=== PATIENT | female | born 1925 | race African-American/Black ===

== ENCOUNTER 2016-11-02 04:26 | Inpatient (IN) | payer MEDICARE, OTHER ==
[~2016-11-02] VITALS: Ht 152.4 cm; Wt 56.2 kg
[2016-11-02] VITALS (8 sets, daily range): BP systolic 83–127; BP diastolic 42–83
[~2016-11-02 04:26] MED LIST: AMLO10TA2 PO; ASPI-482 PO; BISA-42 PO; GLIM2TAB2 PO; LISI10TA PO; LISI10TA2 PO; LOVA40TA2 PO; MAGN400O7 PO; METF-620 PO; SENN8.6C2 PO
[2016-11-02] MEDS ORDERED: MIDAZOLAM PREMIX 100 ML IV ONE (04:51)
[2016-11-02 04:57] LABS: BASO # 0.1 x10^3/uL (0.0-0.2); BASO % 0 % (0-3); EOS % 0 % (0-3); HEMATOCRIT 40.4 % (36.0-47.0); HEMOGLOBIN 12.5 g/dL (12.0-15.5); LYMPH # 1.4 x10^3/uL (1.0-4.8); LYMPH % 8 % (24-48); MEAN CORPUSCULAR HEMOGLOBIN 30 pg (25-35); MEAN CORPUSCULAR HGB CONC 31 g/dL (31-37); MEAN CORPUSCULAR VOLUME 97 fL (79-100); MONO % 6 % (0-9); NEUT % 86 % (31-73); PLATELET COUNT 209 x10^3/uL (140-400); RED BLOOD COUNT 4.15 x10^6/uL (3.50-5.40); WHITE BLOOD COUNT 18.8 x10^3/uL (4.0-11.0)
[2016-11-02] MEDS ORDERED: IV NORMAL SALINE 1000ML BAG 1,000 ML IV ONE ×2 (05:00→05:30)
[2016-11-02 05:09] LABS: BILIRUBIN,URINE NEGATIVE (NEG); GLUCOSE,URINE >=1000 mg/dL (NEG); NITRITE,URINE NEGATIVE (NEG); PH,URINE 5.5; PROTEIN,URINE NEGATIVE (NEG-TRACE); UROBILINOGEN,URINE 0.2 mg/dL (0.2 mg/dL)
[2016-11-02 05:12] LABS: HCO3 ABG 10 mmol/L (21-28); PCO2 ABG 23 mmHg (35-46); PH ABG 7.25 (7.35-7.45); PO2 ABG 352 mmHg (65-108); SAT O2 ABG 100 % (92-99)
[2016-11-02] MEDS ORDERED: NOREPINEPHRIN PREMIX 250 ML IV ONE ×2 (05:15→13:59)
[2016-11-02] MEDS ORDERED: CLINDAMYCIN 600MG PREMIX 50 ML IV ONE (05:15)
[2016-11-02 05:17] LABS: CALCIUM 9.7 mg/dL (8.5-10.1); CREATININE 2.6 mg/dL (0.6-1.0); POTASSIUM 5.2 mmol/L (3.5-5.1)
[2016-11-02 05:24] LABS: ALBUMIN 3.3 g/dL (3.4-5.0); ALBUMIN/GLOBULIN RATIO 0.8 (1.0-1.7); TOTAL BILIRUBIN 0.7 mg/dL (0.2-1.0); TOTAL PROTEIN 7.5 g/dL (6.4-8.2)
[2016-11-02 05:26] LABS: BACTERIA,URINE FEW /HPF (0-FEW); RBC,URINE 20-40 /HPF (0-2)
[2016-11-02] MEDS ORDERED: NALOXONE 2 MG/2 ML DISP.SYRIN. IV ONE (05:30)
[2016-11-02] MEDS ORDERED: MIDAZOLAM PREMIX 100 ML IV PRN (05:45)
--- NOTE | 2016-11-02 05:53 | PHYS DOC ---
Past Medical History Past Medical History: Constipation, Diabetes-Type II, High Cholesterol, Hypertension Additional Past Medical Histor: dementia, Past Surgical History: Pacemaker, Other Additional Past Surgical Histo: unknown Alcohol Use: None Drug Use: None Adult General Chief Complaint Chief Complaint: DYSPNEA/RESPIRATOY DISTRESS HPI HPI Patient is a 89 year old [place] female [facility] patient with history of dementia resents with hypoxia acute respiratory failure and hypotension. Patient was found to be hypoxic and hypotensive on morning rounds. EMS was contacted patient was satting 70% on room air with nonpalpable pulse. Patient placed on [id number] with manual ventilation transferred to the ED. Systolic blood pressure of 50 on ED arrival. Blood sugar normal. Patient is a full code. Patient intubated and given aggressive hydration hydration for blood pressure support. History is limited due to the patient's cognitive impairment clinical condition. Review of Systems Review of Systems Review symptoms as prescribed is limited due to patient's clinical condition. Current Medications Current Medications Current Medications Medications (Trade) Dose Ordered Sig/Delisa Start Time Stop Time Status Last Admin Dose Admin Sodium Chloride 1,000 ml @ 1,000 mls/hr 1X ONCE 11/02/16 05:00 11/02/16 05:59 11/02/16 04:34 1,000 MLS/HR Allergies Allergies Allergies Coded Allergies Type Severity Reaction Last Updated Verified No Known Drug Allergies 10/22/14 No Physical Exam Physical Exam Constitutional: Unresponsive, agonal respirations. [] HENT: Normocephalic, atraumatic, bilateral external ears normal, oropharynx moist, dentures in place, nose normal. [] Eyes: PERRL, sluggish reactivity. [] Neck: Normal range of motion, supple. [] Cardiovascular: Regular rate [] Lungs & Thorax: Agonal respirations with assisted mainly with [id number] [] Abdomen: Bowel sounds normal, soft. [] Skin: Warm, dry, appropriate for ethnicity [] . [] Extremities: No tenderness, no cyanosis, no clubbing, ROM intact, no edema. [] Neurologic: GCS of 3 [] . [] Current Patient Data Vital Signs Vital Signs Date Time Temp Pulse Resp B/P (MAP) Pulse Ox O2 Delivery O2 Flow Rate FiO2 11/02/16 04:55 108 20 70/34 (46) 100 Ventilator 11/02/16 04:45 15.0 11/02/16 04:28 98.0 98.0 Lab Values Laboratory Tests Test 11/02/16 04:41 11/02/16 04:45 11/02/16 04:53 O2 Saturation 100 % (92-99) H Arterial Blood pH 7.25 (7.35-7.45) L Arterial Blood pCO2 at Patient Temp 23 mmHg (35-46) L Arterial Blood pO2 at Patient Temp 352 mmHg (65-108) H Arterial Blood HCO3 10 mmol/L (21-28) L Arterial Blood Base Excess -15 mmol/L (-3-3) L FiO2 100.0 White Blood Count 18.8 x10^3/uL (4.0-11.0) H Red Blood Count 4.15 x10^6/uL (3.50-5.40) Hemoglobin 12.5 g/dL (12.0-15.5) Hematocrit 40.4 % (36.0-47.0) Mean Corpuscular Volume 97 fL (79-100) Mean Corpuscular Hemoglobin 30 pg (25-35) Mean Corpuscular Hemoglobin Concent 31 g/dL (31-37) Red Cell Distribution Width 15.0 % (11.5-14.5) H Platelet Count 209 x10^3/uL (140-400) Neutrophils (%) (Auto) 86 % (31-73) H Lymphocytes (%) (Auto) 8 % (24-48) L Monocytes (%) (Auto) 6 % (0-9) Eosinophils (%) (Auto) 0 % (0-3) Basophils (%) (Auto) 0 % (0-3) Neutrophils # (Auto) 16.2 x10^3uL (1.8-7.7) H Lymphocytes # (Auto) 1.4 x10^3/uL (1.0-4.8) Monocytes # (Auto) 1.1 x10^3/uL (0.0-1.1) Eosinophils # (Auto) 0.0 x10^3/uL (0.0-0.7) Basophils # (Auto) 0.1 x10^3/uL (0.0-0.2) Platelet Estimate Pending Sodium Level 150 mmol/L (136-145) H Potassium Level 5.2 mmol/L (3.5-5.1) H Chloride Level 109 mmol/L (98-107) H Carbon Dioxide Level 14 mmol/L (21-32) L Anion Gap 27 (6-14) H Blood Urea Nitrogen 38 mg/dL (7-20) H Creatinine 2.6 mg/dL (0.6-1.0) H Estimated GFR (Cockcroft-Gault) 21.0 BUN/Creatinine Ratio 15 (6-20) Glucose Level 145 mg/dL (70-99) H Calcium Level 9.7 mg/dL (8.5-10.1) Total Bilirubin 0.7 mg/dL (0.2-1.0) Aspartate Amino Transferase (AST) 156 U/L (15-37) H Alanine Aminotransferase (ALT) 36 U/L (14-59) Alkaline Phosphatase 95 U/L (46-116) Troponin I Quantitative 4.747 ng/mL (0.000-0.055) ZO-Bqa-T-Type Natriuretic Peptide 580 pg/mL (0-449) H Total Protein 7.5 g/dL (6.4-8.2) Albumin 3.3 g/dL (3.4-5.0) L Albumin/Globulin Ratio 0.8 (1.0-1.7) L Thyroid Stimulating Hormone (TSH) 12.215 uIU/mL (0.358-3.74) H Urine Collection Type U cath Urine Color Yellow Urine Clarity Clear Urine pH 5.5 Urine Specific [place] 1.025 Urine Protein Negative mg/dL (NEG-TRACE) Urine Glucose (UA) >=1000 mg/dL (NEG) Urine Ketones (Stick) Negative mg/dL (NEG) Urine Blood Moderate (NEG) Urine Nitrite Negative (NEG) Urine Bilirubin Negative (NEG) Urine Urobilinogen Dipstick 0.2 mg/dL (0.2 mg/dL) Urine Leukocyte Esterase Negative (NEG) Urine RBC 20-40 /HPF (0-2) Urine WBC 1-4 /HPF (0-4) Urine Transitional Epithelial Cells Few /LPF Urine Renal Epithelial Cells Occ /LPF Urine Bacteria Few /HPF (0-FEW) Laboratory Tests 11/02/16 04:45 Laboratory Tests 11/02/16 04:45 EKG EKG [EKG #1: Sinus tach, rate 106, no acute ST-T wave changes. Inferior Q waves, QTC 467] Radiology/Procedures Radiology/Procedures [Chest x-ray: Endotracheal tube in good position Intubation procedure note: Consent was not obtained due to the emergent nature of the patient's condition. Patient placed on 100% oxygen and with assisted respirations via bag valve mask. Etomidate and succinylcholine were given for sedation and paralysis. Upon adequate level of relaxation, as 7.5 endotracheal tube was cautiously introduced through the vocal cords and held a 21 cm at the lips upon first attempt via video laryngoscope. Endotracheal tube was then secured and position was confirmed with breath sounds, capnometry and chest x- ray. ] Course & Med Decision Making Course & Med Decision Making Pertinent Labs and Imaging studies reviewed. (See chart for details) [Patient with acute respiratory failure with hypoxia immediately intubated on ED arrival. Concerns for possible aspiration at [facility]. Empiric antibiotics given. Patient hypotensive with elevated troponin. Aggressive IV fluids and Levophed started. Dr. Harding consulted. Dr. Diallo accepts for Dr. Bravo. Family members updated with patients status and request no chest compressions. A chest x-ray was ordered confirms proper endotracheal tube placement. Patient tolerated the procedure well without complication. Patient will have CT performed of the head on the way to ICU. ] Dragon Disclaimer Dragon Disclaimer This electronic medical record was generated, in whole or in part, using a voice recognition dictation system. Departure Departure Impression: Primary Impression: Acute respiratory failure with hypoxemia Additional Impressions: Hypotension Elevated troponin Altered mental state Dementia Disposition: ADMITTED INPATIENT Admitting Physician: Beto Deal Condition: GRAVE Referrals: ANAID CISSE MD (PCP) Problem Qualifiers ANIRUDH MCCONNELL DO Nov 02, 2016 05:53
[2016-11-02] MEDS ORDERED: IV NORMAL SALINE 1000ML BAG 1,000 ML IV SCH (06:00)
[2016-11-02] MEDS ORDERED: MIDAZOLAM HCL/PF 5 MG/5 ML VIAL. IV ONE (06:00)
[2016-11-02] MEDS ORDERED: SUCCINYLCHOLINE 200 MG/10 ML VIAL. ONE (06:25)
[2016-11-02] MEDS ORDERED: ETOMIDATE 20 MG/10 ML VIAL. IV ONE (06:25)
--- NOTE | 2016-11-02 06:35 | RAD ---
EXAM: CT head without contrast HISTORY: AMS H/O DEMENTIA AND HYPOTENSION COMPARISON: November 09, 2014 TECHNIQUE: Computed tomographic images of the head were obtained without contrast. RS compliance statement: One or more of the following individualized dose reduction techniques were utilized for this examination: 1. Automated exposure control 2. Adjustment of the mA and/or kV according to patient size 3. Use of iterative reconstruction technique FINDINGS: There is no acute intracranial process identified. Specifically, there are no intracranial blood products, extra-axial fluid collections, mass effect or midline shift. Ventricles and sulci appear age-appropriate. There are areas of decreased attenuation within the cerebral white matter, nonspecific and likely related to chronic small vessel disease. Basal ganglia mineralization is redemonstrated. Intracranial vascular calcifications are present. The visualized portions of the orbits, paranasal sinuses and mastoid air cells are unremarkable. No suspicious calvarial lesion is seen. IMPRESSION: No acute intracranial findings or change from prior exam. Electronically signed by: Suri Card MD (11/02/2016 6:31 AM) [id number]
[2016-11-02] MEDS ORDERED: POLY119P19 PO (06:51)
[2016-11-02] MEDS ORDERED: BENZ100C PO (06:51)
[2016-11-02] MEDS ORDERED: MULT-245 PO (06:51)
[2016-11-02] MEDS ORDERED: INSU100I13 SQ (06:51)
[2016-11-02] MEDS ORDERED: DOCU-109 PO (06:51)
[2016-11-02] MEDS ORDERED: ACET325T9 PO (06:51)
[2016-11-02] MEDS ORDERED: SERT50TA PO (06:51)
[2016-11-02] MEDS ORDERED: CARB1TAB2 PO (06:51)
[2016-11-02] MEDS ORDERED: LISI40TA PO (06:51)
[2016-11-02 06:56] LABS: PLT ESTIMATE ADEQUATE (ADEQUATE)
--- NOTE | 2016-11-02 06:58 | RAD ---
Chest x-ray Indication: ET tube placement Technique: Supine AP view of the chest Comparison: Chest x-ray from 11/11/2014 Findings: ET tube is seen at the level of lay[place] and should be withdrawn by approximately 3.5 cm. NG tube is seen with its tip in the distal stomach. Left chest wall cardiac device is seen with leads projecting over the heart Heart is normal in size. Lungs are clear. No pneumothorax or pleural effusion. Scoliosis of the spine noted. Impression: ET tube the level of layton. Please withdraw by 3 to 4 cm.
--- NOTE | 2016-11-02 07:11 | EKG ---
[facility] [address] [place] [address] Test Date: 2016-11-02 Test Time: 05:39:14 Pat Name: JOAO FINN Department: Room: 104 1 Gender: F Gang Bore Operator: : [id number] Requested By: ANIRUDH MCCONNELL Order Number: [id number] Reading MD: Measurements Intervals [place] Rate: 151 P: TN: QRS: -77 QRSD: 134 T: 95 QT: 322 QTc: 511 Interpretive Statements IRREGULAR RHYTHM, NO P-WAVE FOUND VENTRICULAR PREMATURE COMPLEX(ES) ABNORMAL LEFT AXIS DEVIATION NON SPECIFIC INTRAVENTRICULAR BLOCK QRS(T) CONTOUR ABNORMALITY CONSIDER ANTEROSEPTAL MYOCARDIAL DAMAGE CONSISTENT WITH INFERIOR INFARCT POSSIBLY RECENT ABNORMAL ECG RI6.01 No previous ECG available for comparison
[2016-11-02] MEDS ORDERED: PIPERACILLIN/TAZOBACTAM 3.375 GM in IV NORMAL SALINE 50ML 50 ML IV SCH (07:30)
[2016-11-02] MEDS ORDERED: VANCOMYCIN 1 GM in IV NORMAL SALINE 250ML 250 ML IV ONE (07:30)
--- NOTE | 2016-11-02 07:59 | PDOC ---
Infectious Disease Note Vital Sign Vital Signs Vital Signs Date Time Temp Pulse Resp B/P (MAP) Pulse Ox O2 Delivery O2 Flow Rate FiO2 11/02/16 07:24 100 Ventilator 11/02/16 06:30 114 22 127/83 (98) 11/02/16 06:15 96.7 96.7 11/02/16 04:45 15.0 Labs Lab Laboratory Tests Test 11/02/16 04:41 11/02/16 04:45 11/02/16 04:53 11/02/16 06:45 O2 Saturation 100 % (92-99) Arterial Blood pH 7.25 (7.35-7.45) Arterial Blood pCO2 at Patient Temp 23 mmHg (35-46) Arterial Blood pO2 at Patient Temp 352 mmHg (65-108) Arterial Blood HCO3 10 mmol/L (21-28) Arterial Blood Base Excess -15 mmol/L (-3-3) FiO2 100.0 White Blood Count 18.8 x10^3/uL (4.0-11.0) Red Blood Count 4.15 x10^6/uL (3.50-5.40) Hemoglobin 12.5 g/dL (12.0-15.5) Hematocrit 40.4 % (36.0-47.0) Mean Corpuscular Volume 97 fL (79-100) Mean Corpuscular Hemoglobin 30 pg (25-35) Mean Corpuscular Hemoglobin Concent 31 g/dL (31-37) Red Cell Distribution Width 15.0 % (11.5-14.5) Platelet Count 209 x10^3/uL (140-400) Neutrophils (%) (Auto) 86 % (31-73) Lymphocytes (%) (Auto) 8 % (24-48) Monocytes (%) (Auto) 6 % (0-9) Eosinophils (%) (Auto) 0 % (0-3) Basophils (%) (Auto) 0 % (0-3) Neutrophils # (Auto) 16.2 x10^3uL (1.8-7.7) Lymphocytes # (Auto) 1.4 x10^3/uL (1.0-4.8) Monocytes # (Auto) 1.1 x10^3/uL (0.0-1.1) Eosinophils # (Auto) 0.0 x10^3/uL (0.0-0.7) Basophils # (Auto) 0.1 x10^3/uL (0.0-0.2) Segmented Neutrophils % 62 % (35-66) Band Neutrophils % 25 % (0-9) Lymphocytes % 8 % (24-48) Monocytes % 3 % (0-10) Metamyelocytes % 2 % (0-0) Dohle Bodies Present Platelet Estimate Adequate (ADEQUATE) Sodium Level 150 mmol/L (136-145) Potassium Level 5.2 mmol/L (3.5-5.1) Chloride Level 109 mmol/L (98-107) Carbon Dioxide Level 14 mmol/L (21-32) Anion Gap 27 (6-14) Blood Urea Nitrogen 38 mg/dL (7-20) Creatinine 2.6 mg/dL (0.6-1.0) Estimated GFR (Cockcroft-Gault) 21.0 BUN/Creatinine Ratio 15 (6-20) Glucose Level 145 mg/dL (70-99) Lactic Acid Level 11.8 mmol/L (0.4-2.0) 11.3 mmol/L (0.4-2.0) Calcium Level 9.7 mg/dL (8.5-10.1) Total Bilirubin 0.7 mg/dL (0.2-1.0) Aspartate Amino Transf (AST/SGOT) 156 U/L (15-37) Alanine Aminotransferase (ALT/SGPT) 36 U/L (14-59) Alkaline Phosphatase 95 U/L (46-116) Troponin I Quantitative 4.747 ng/mL (0.000-0.055) QB-Qna-P-Type Natriuretic Peptide 580 pg/mL (0-449) Total Protein 7.5 g/dL (6.4-8.2) Albumin 3.3 g/dL (3.4-5.0) Albumin/Globulin Ratio 0.8 (1.0-1.7) Thyroid Stimulating Hormone (TSH) 12.215 uIU/mL (0.358-3.74) Urine Collection Type U cath Urine Color Yellow Urine Clarity Clear Urine pH 5.5 Urine Specific [place] 1.025 Urine Protein Negative mg/dL (NEG-TRACE) Urine Glucose (UA) >=1000 mg/dL (NEG) Urine Ketones (Stick) Negative mg/dL (NEG) Urine Blood Moderate (NEG) Urine Nitrite Negative (NEG) Urine Bilirubin Negative (NEG) Urine Urobilinogen Dipstick 0.2 mg/dL (0.2 mg/dL) Urine Leukocyte Esterase Negative (NEG) Urine RBC 20-40 /HPF (0-2) Urine WBC 1-4 /HPF (0-4) Urine Transitional Epithelial Cells Few /LPF Urine Renal Epithelial Cells Occ /LPF Urine Bacteria Few /HPF (0-FEW) Objective Assessment Sepsis Lactic acidosis Leukocytosis Respiratory failure Circulatory failure Acute WI/troponin leak Renal insufficiency Plan Plan of Care vanc x 1 zosyn and levaquin supportive care d/w brother and sister at bedside check cultures need palliative care DESI EVANS MD Nov 02, 2016 07:59
[2016-11-02 08:43] LABS: HCO3 ABG 9 mmol/L (21-28); PH ABG 7.28 (7.35-7.45); PO2 ABG 91 mmHg (65-108); SAT O2 ABG 97 % (92-99)
[2016-11-02 08:47] LABS: FIO2 ABG 40; PCO2 ABG 19 mmHg (35-46)
--- NOTE | 2016-11-02 09:03 | CONS ---
DATE OF CONSULTATION: 11/02/2016 DATE OF SERVICE: 11/02/2016 REQUESTING PHYSICIAN: Dr. Deal. REASON FOR CONSULTATION: Sepsis. HISTORY OF PRESENT ILLNESS: This is an 89-year-old -[place] female who is a [facility] who also is demented and wheelchair bound, presented as [facility] noted her to be unresponsive, hypotensive and hypoxic. EMS was called. The patient was satting at 70% on room air, nonpalpable pulse, they eventually got the pulse, intubated. The patient is currently in ICU, intubated and on vasopressor support. Her lactic acid has been 11.8, it has troponin leak 4.7, sodium 150 and BUN and creatinine elevated as well as WBC elevated. The patient's family is at the bedside. PAST MEDICAL HISTORY: Positive for dementia, diabetes, hypertension, hyperlipidemia and wheelchair bound. SOCIAL HISTORY: Negative for smoking, alcohol, illicit drug use. The patient is a [facility] resident. REVIEW OF SYSTEMS: Unable to obtain, although no diarrhea or vomiting noted by nursing. CURRENT MEDICATIONS: Reviewed. The patient received clindamycin and Levaquin. I gave one dose of vancomycin and started Zosyn. PHYSICAL EXAMINATION: GENERAL: Sedated, orally intubated female, not in distress. VITAL SIGNS: Temperature 96.7, pulse 114, respirations 22, blood pressure 127/83. HEENT: Both pupils are round and reacting. No conjunctival lesion. Mouth cannot be visualized, orally intubated. NECK: Supple, no JVD, no lymphadenopathy. LUNGS: Decreased breath sounds bilaterally. HEART: S1, S2 regular. No gallop, murmur. ABDOMEN: Soft, nontender. EXTREMITIES: No edema, cyanosis. SKIN: Unremarkable. The patient had been moving her extremities before sedation. LABORATORY DATA: White count is 18,000, platelets 209. Sodium is 150, BUN 38, creatinine 2.6. AST is 156. Urinalysis showed 1-4 wbc's, 20-40 rbc's. Blood culture, urine culture is pending. IMAGING STUDIES: Chest x-ray is unremarkable. CT head is unremarkable for any acute changes. IMPRESSION: 1. Sepsis with lactic acidosis. 2. Hypotension requiring vasopressor support. 3. Respiratory failure. 4. Hypoxemia. 5. Leukocytosis. 6. Dementia. 7. Diabetes. RECOMMENDATIONS: One dose of vancomycin was given by me. I would also start Zosyn. Continue Levaquin, supportive care. We will check the cultures. Discussed with the family. Overall, prognosis is poor. The patient is do not resuscitate, i.e., no CPR. Currently, the patient is intubated. We may get palliative care involved. Thank you very much, Dr. Deal, for giving me the opportunity to participate in this patient's care. DESI EVANS MD DR: BRYAN/nts JOB#: [id number] / [id number]
--- NOTE | 2016-11-02 09:45 | PDOC2 ---
ROLANDA TURNER PEDIGREE TRACER 11/02/16 0945: CARDIAC CONSULT DATE OF CONSULT Date of Consult DATE: 11/02/16 TIME: 09:21 REASON FOR CONSULT Reason for Consult: Elevated troponin Hypotension REFERRING PHYSICIAN Referring Physician: Dr. Valdez SOURCE Source: Chart review HISTORY OF PRESENT ILLNESS HISTORY OF PRESENT ILLNESS This is an 89 yo female who presented from nursing facility as she was found to be unresponsive. Patient was apparently found to be hypoxic and hypotensive by by facility staff during morning rounds. EMS was called. Oxygen noted in the 70' s. Was intubated and initiated on Levophed upon arrival to ED. Troponin noted at 4.747, which prompted this consult along with the hypotension. Family at bedside; had no contact with patient in the last 2-3 days to assess for change in status. Is demented and wheelchair bound at baseline. PAST MEDICAL HISTORY Cardiovascular: HTN, Hyperlipidemia, Other (SSS s/p PPM) Pulmonary: No pertinent hx CENTRAL NERVOUS SYSTEM: Dementia GI: No pertinent hx Heme/Onc: No pertinent hx Hepatobiliary: No pertinent hx Psych: No pertinent hx Rheumatologic: No pertinent hx Infectious disease: No pertinent hx ENT: No pertinent hx Endocrine: Diabetes Dermatology: No pertinent hx PAST SURGICAL HISTORY Past Surgical History: Pacemaker FAMILY HISTORY Family History: Cancer, Diabetes, Hypertension SOCIAL HISTORY Smoke: No ALCOHOL: none Drugs: None Lives: Roommate (nursing facility ) CURRENT MEDICATIONS CURRENT MEDICATIONS Current Medications Medications (Trade) Dose Ordered Sig/Delisa Route PRN Reason Start Time Stop Time Status Last Admin Dose Admin Sodium Chloride 1,000 ml @ 1,000 mls/hr 1X ONCE IV 11/02/16 05:00 11/02/16 05:59 DC 11/02/16 04:34 Clindamycin Phosphate 50 ml @ 100 mls/hr 1X ONCE IV 11/02/16 05:15 11/02/16 05:44 DC 11/02/16 05:10 Norepinephrine Bitartrate 250 ml @ 0 mls/hr 1X ONCE IV 11/02/16 05:15 11/02/16 05:16 DC 11/02/16 05:22 Sodium Chloride 1,000 ml @ 1,000 mls/hr 1X ONCE IV 11/02/16 05:30 11/02/16 06:29 DC 11/02/16 05:33 Levofloxacin/ Dextrose 150 ml @ 100 mls/hr 1X ONCE IV 11/02/16 05:45 8/24/17 07:14 DC 11/02/16 05:46 Naloxone HCl (Narcan) 2 mg 1X ONCE IV 11/02/16 05:30 11/02/16 05:35 DC 11/02/16 04:32 Midazolam HCl (Versed) 5 mg 1X ONCE IV 11/02/16 06:00 11/02/16 06:01 DC 11/02/16 04:56 Piperacillin Sod/ Tazobactam Sod 3.375 gm/Sodium Chloride 50 ml @ 100 mls/hr Q8HRS IV 11/02/16 07:30 11/02/16 07:47 Vancomycin HCl 1 gm/Sodium Chloride 250 ml @ 250 mls/hr 1X ONCE IV 11/02/16 07:30 11/02/16 08:29 DC 11/02/16 07:47 ALLERGIES ALLERGIES: Coded Allergies: No Known Drug Allergies (Unverified , 10/22/14) ROS Review of System unobtainable PHYSICAL EXAM General: Other (intubated/sedated) HEENT: Atraumatic Lungs: Other (CTA, mechanical ventilation) Heart: Regular rate, Other (tele v-pacing; distant heart tones ) Abdomen: Soft Extremities: No edema, Other (extremities cool to touch) Neuro: Other (sedated) Psych/Mental Status: Other (unable to assess ) MUSCULOSKELETAL: Osteoarthritic changes both hands VITALS VITALS Vital Signs Date Time Temp Pulse Resp B/P (MAP) Pulse Ox O2 Delivery O2 Flow Rate FiO2 11/02/16 08:48 99 Ventilator 11/02/16 06:30 114 22 127/83 (98) 11/02/16 06:15 96.7 96.7 11/02/16 04:45 15.0 LABS Lab: Laboratory Tests Test 11/02/16 04:41 11/02/16 04:45 11/02/16 04:53 11/02/16 06:45 O2 Saturation 100 % (92-99) Arterial Blood pH 7.25 (7.35-7.45) Arterial Blood pCO2 at Patient Temp 23 mmHg (35-46) Arterial Blood pO2 at Patient Temp 352 mmHg (65-108) Arterial Blood HCO3 10 mmol/L (21-28) Arterial Blood Base Excess -15 mmol/L (-3-3) FiO2 100.0 White Blood Count 18.8 x10^3/uL (4.0-11.0) Red Blood Count 4.15 x10^6/uL (3.50-5.40) Hemoglobin 12.5 g/dL (12.0-15.5) Hematocrit 40.4 % (36.0-47.0) Mean Corpuscular Volume 97 fL (79-100) Mean Corpuscular Hemoglobin 30 pg (25-35) Mean Corpuscular Hemoglobin Concent 31 g/dL (31-37) Red Cell Distribution Width 15.0 % (11.5-14.5) Platelet Count 209 x10^3/uL (140-400) Neutrophils (%) (Auto) 86 % (31-73) Lymphocytes (%) (Auto) 8 % (24-48) Monocytes (%) (Auto) 6 % (0-9) Eosinophils (%) (Auto) 0 % (0-3) Basophils (%) (Auto) 0 % (0-3) Neutrophils # (Auto) 16.2 x10^3uL (1.8-7.7) Lymphocytes # (Auto) 1.4 x10^3/uL (1.0-4.8) Monocytes # (Auto) 1.1 x10^3/uL (0.0-1.1) Eosinophils # (Auto) 0.0 x10^3/uL (0.0-0.7) Basophils # (Auto) 0.1 x10^3/uL (0.0-0.2) Segmented Neutrophils % 62 % (35-66) Band Neutrophils % 25 % (0-9) Lymphocytes % 8 % (24-48) Monocytes % 3 % (0-10) Metamyelocytes % 2 % (0-0) Dohle Bodies Present Platelet Estimate Adequate (ADEQUATE) Sodium Level 150 mmol/L (136-145) Potassium Level 5.2 mmol/L (3.5-5.1) Chloride Level 109 mmol/L (98-107) Carbon Dioxide Level 14 mmol/L (21-32) Anion Gap 27 (6-14) Blood Urea Nitrogen 38 mg/dL (7-20) Creatinine 2.6 mg/dL (0.6-1.0) Estimated GFR (Cockcroft-Gault) 21.0 BUN/Creatinine Ratio 15 (6-20) Glucose Level 145 mg/dL (70-99) Lactic Acid Level 11.8 mmol/L (0.4-2.0) 11.3 mmol/L (0.4-2.0) Calcium Level 9.7 mg/dL (8.5-10.1) Total Bilirubin 0.7 mg/dL (0.2-1.0) Aspartate Amino Transf (AST/SGOT) 156 U/L (15-37) Alanine Aminotransferase (ALT/SGPT) 36 U/L (14-59) Alkaline Phosphatase 95 U/L (46-116) Troponin I Quantitative 4.747 ng/mL (0.000-0.055) QE-Oft-E-Type Natriuretic Peptide 580 pg/mL (0-449) Total Protein 7.5 g/dL (6.4-8.2) Albumin 3.3 g/dL (3.4-5.0) Albumin/Globulin Ratio 0.8 (1.0-1.7) Thyroid Stimulating Hormone (TSH) 12.215 uIU/mL (0.358-3.74) Urine Collection Type U cath Urine Color Yellow Urine Clarity Clear Urine pH 5.5 Urine Specific [place] 1.025 Urine Protein Negative mg/dL (NEG-TRACE) Urine Glucose (UA) >=1000 mg/dL (NEG) Urine Ketones (Stick) Negative mg/dL (NEG) Urine Blood Moderate (NEG) Urine Nitrite Negative (NEG) Urine Bilirubin Negative (NEG) Urine Urobilinogen Dipstick 0.2 mg/dL (0.2 mg/dL) Urine Leukocyte Esterase Negative (NEG) Urine RBC 20-40 /HPF (0-2) Urine WBC 1-4 /HPF (0-4) Urine Transitional Epithelial Cells Few /LPF Urine Renal Epithelial Cells Occ /LPF Urine Bacteria Few /HPF (0-FEW) Test 11/02/16 08:40 O2 Saturation 97 % (92-99) Arterial Blood pH 7.28 (7.35-7.45) Arterial Blood pCO2 at Patient Temp 19 mmHg (35-46) Arterial Blood pO2 at Patient Temp 91 mmHg (65-108) Arterial Blood HCO3 9 mmol/L (21-28) Arterial Blood Base Excess -16 mmol/L (-3-3) FiO2 40 ASSESSMENT/PLAN ASSESSMENT/PLAN 1. Leukocytosis/ lactic acidosis/ sepsis; continue IV antibiotic therapy as per ID 2. NSTEMI; initial 4.747- trend 3. Septic shock; requiring pressor support 4. Acute respiratory failure; s/p intubation. per pulm 5. Hyperlipidemia; check lipids 6. SSS s/p Biotronik PPM; interrogate 7. Diabetes 8. SAMI; IVFs 9. Dementia Recommendations ASA NC Start heparin as per CV protocol Check echo to assess LV function Pressor support as warranted Continue supportive care. Further recommendations pending diagnostics Prognosis guarded; family made decision for no compressions. Palliative care consulted. Will follow along Problems: RAKESH LANGSTON MD 11/02/16 1601: CARDIAC CONSULT ALLERGIES ALLERGIES: Coded Allergies: No Known Drug Allergies (Unverified , 10/22/14) ASSESSMENT/PLAN ASSESSMENT/PLAN Patient seen and examined. Agree with FINISHING FRAME RUNNER's assessment and plan. Start Heparin per protocol for NSTEMI 2D echo showed normal LV function Continue treatment of sepsis per ID and vent management per pulm Guarded prognosis - family considering palliative care Thank you for your consultation Problems: ROLANDA TURNER APRN Nov 02, 2016 09:45 RAKESH LANGSTON MD Nov 02, 2016 16:01
[2016-11-02 10:08] LABS: CHOLESTEROL/HDL RATIO 2.5
--- NOTE | 2016-11-02 10:18 | PDOC ---
Provider Note Provider Note [id number] acute resp fail septic shock cortez see orders. TAYLOR CASTELLANOS MD Nov 02, 2016 10:18
--- NOTE | 2016-11-02 10:29 | PDOC ---
Provider Note Provider Note pt seen in ICU.H&P dictated. #[id number] ANA DANIELS MD Nov 02, 2016 10:29
[2016-11-02] MEDS ORDERED: FAMOTIDINE 20 MG/2 ML VIAL IVP SCH (10:30)
[2016-11-02] MEDS ORDERED: ENOXAPARIN 30 MG/0.3 ML SYRINGE. SQ SCH (11:00)
--- NOTE | 2016-11-02 11:17 | CONS ---
DATE OF CONSULTATION: 11/02/2016 I was asked to see this 89-year-old lady for acute respiratory failure, septic shock. HISTORY OF PRESENT ILLNESS: The patient is currently on the ventilator and is not responsive, and he is not able to give any information. All of the information was obtained from chart and nursing staff. She is a senior care resident. She is wheelchair bound and has dementia. She was found unresponsive this morning. She was brought to the Emergency Room, she was intubated. She is hypotensive and is on Levophed. She does not respond. On arrival to the Emergency Room, her systolic blood pressure was 50. IV fluid was given, now she is on Levophed. PAST MEDICAL HISTORY: Status post pacemaker, dementia, diabetes mellitus, hypertension, sick sinus syndrome, status post pacemaker. ALLERGIES: No known drug allergies. MEDICATIONS: Currently, she is on clindamycin, IV fluid, levofloxacin, Zosyn and vancomycin. SOCIAL HISTORY: Negative for smoking. FAMILY HISTORY: Unable to obtain secondary to the patient being on the ventilator. REVIEW OF SYSTEMS: As mentioned as above. I have discussed the patient with RN, other systems otherwise negative. PHYSICAL EXAMINATION: GENERAL: This is an elderly lady. VITAL SIGNS: Her O2 saturation on 40% FiO2 is 98%, respiratory rate 24, heart rate 114, blood pressure 127/83, temperature 96.7. HEENT: Normocephalic, atraumatic. Pupils are equal, sluggish to light. She is orally intubated. Nose is clear. NECK: There is no JVD, lymphadenopathy or thyromegaly. CARDIOVASCULAR: Tachycardic. CHEST: Inspection is normal. LUNGS: There are bibasilar crackles, dullness at the bases. ABDOMEN: Distended, diminished bowel sounds. EXTREMITIES: There is no edema. LYMPHATICS: There is no lymphadenopathy. NEUROLOGIC: She is not responsive. SKIN: Chronic changes. LABORATORY DATA: I reviewed the following lab data: Chest x-ray shows the ET tube is at the level of layton. WBC is 18.8, hemoglobin 12.5, platelets 209. Sodium 150, potassium 5.2, chloride 109, CO2 14, glucose 145. BUN 38, creatinine 2.6. Troponin 4.74. Lactic acid 11.3, total bilirubin 0.7, AST 156, ALT 36, alkaline phosphatase 95. ABG: pH 7.28, pCO2 19, pO2 91 on assist control rate of 24, tidal volume 500, PEEP of 5, FIO2 40%. MRSA screen is negative. IMPRESSION: 1. Acute hypoxemic respiratory failure. 2. Septic shock. 3. Acute kidney injury. 4. Electrolyte abnormalities. 5. Leukocytosis. 6. Diabetes mellitus. 7. Dementia. 8. Non-ST elevation myocardial infarction. 8. Sick sinus syndrome, status post pacemaker. PLAN AND RECOMMENDATION: 1. Titrate FiO2 to keep O2 saturation 94%. 2. Continue ventilator support until the patient is more stable. Ventilator support was reviewed. 3. Continue IV fluid and pressors to keep her mean arterial pressure 65. 4. Pull out ET tube. Repeat chest x-ray after ET tube is pulled out to confirm the position of her ET tube. 5. Continue antibiotic. ID is consulted. 6. Monitor her very closely. 7. Cardiology is consulted. 8. Nephrology is consulted. 9. Start Pepcid for stress ulcer prophylaxis. 10. Start Lovenox for DVT prophylaxis. 11. A.m. ABG and portable chest x-ray. 12. Repeat ABG and a change vent setting per ABG. 13. I have discussed the findings and recommendations with her niece. I have answered all of her niece's questions. 14. The patient prognosis is poor. Code status was discussed, family decided not to do chest compression. Thank you very much for allowing me to participate in care of this very nice lady. The patient is critically ill. This is critical care time 32 minutes without overlap. TAYLOR CASTELLANOS M.D. : BRIELLE/betsy JOB#: [id number] / [id number] KURTIS
--- NOTE | 2016-11-02 13:02 | RAD ---
Portable chest, 11/02/2016, 12:40 PM: History: Respiratory failure, recheck ET tube Comparison is made to the study of earlier the same day at 5:00 AM. The tip of the ET tube now lies 3 to 4 cm above the layton. An NG tube extends into the stomach. A left-sided transvenous pacemaker is unchanged in position. The heart size and pulmonary vascularity are normal. There appears to be minimal streaky atelectasis in the left base. No pulmonary consolidation is seen. There is no evidence of pleural fluid or pneumothorax. IMPRESSION: 1. The ET tube has been repositioned and is now in satisfactory position. 2. Minimal left basilar atelectasis.
[2016-11-02] MEDS ORDERED: ASPIRIN 300 MG SUPP.RECT PR ONE (13:15)
[2016-11-02] MEDS ORDERED: HEPARIN 25,000UTS/500ML PREMIX 500 ML IV PRN (13:15)
[2016-11-02] MEDS ORDERED: PHENYLEPHRINE INJ 80 MG in IV NORMAL SALINE 250ML 250 ML IV PRN (13:15)
[2016-11-02] MEDS ORDERED: HEPARIN for IV BOLUS 10,000 UNIT/10 ML VIAL. IV PRN (13:15)
[2016-11-02] MEDS ORDERED: VASOPRESSIN 40 UNIT in IV DEXTROSE 5% 100 ML IV PRN (13:15)
[2016-11-02] MEDS ORDERED: NOREPINEPHRIN PREMIX 250 ML IV PRN (14:15)
[2016-11-02] MEDS ORDERED: MORPHINE SULFATE 4 MG/ML DISP.SYRIN. IV ONE (14:30)
[2016-11-02] MEDS ORDERED: MORPHINE SULFATE 4 MG/ML DISP.SYRIN. IV PRN ×2 (14:30)
--- NOTE | 2016-11-02 14:38 | CARD ---
APPROVED REPORT EXAM: Two-dimensional and M-mode echocardiogram with Doppler and color Doppler. Other Information Quality : Technically Limited Technically limited study due to arrythimia and respiratory interference with ventilator. INDICATION Non STEMI 2D DIMENSIONS Left Atrium(2D)3.3 (1.6-4.0cm)IVSd1.2 (0.7-1.1cm) Aortic Root(2D)2.7 (2.0-3.7cm)LVDd4.0 (3.9-5.9cm) LVOT Diameter2.0 (1.8-2.4cm)PWd1.2 (0.7-1.1cm) LVDs2.5 (2.5-4.0cm)FS (%) 37.6 % SV48.1 ml Aortic Valve AoV Peak J Luis.181.6cm/sAoV VTI19.2cm AO Peak GR.13.2mmHgLVOT VTI 16.10cm AO Mean GR.8mmHg Mitral Valve MV E Gvrexndp17.5cm/sMV E Peak Gr.8mmHg MV DECEL [id number] A Kkknaple309.3cm/s MV E Mean Gr.2mmHgMV [id number] E/A Ratio0.3MV A [id number] MVA (PHT)3.67cm2 LEFT VENTRICLE Technically difficult study. The left ventricle is normal size. There is normal left ventricular wall thickness. Left ventricle systolic function is normal. The Ejection Fraction is 60-65%. There is nor mal LV segmental wall motion. Tissue Doppler imaging reveals mild left ventricular diastolic dysfunct ion. Transmitral Doppler flow pattern is Grade I-abnormal relaxation pattern. There is no ventricular septal defect visualized. RIGHT VENTRICLE The right ventricle is normal size. The right ventricular systolic function is normal. There is a pac emaker lead in the right ventricle. ATRIA The left atrium size is normal. The right atrium size is normal. The interatrial septum is intact wit h no evidence for an atrial septal defect or patent foramen ovale as noted on 2-D or Doppler imaging. AORTIC VALVE The aortic valve is not well visualized. Doppler and Color Flow revealed trace aortic regurgitation. There is no significant aortic valvular stenosis. MITRAL VALVE The mitral valve leaflets are moderately calcified. There is no mitral valve stenosis. Doppler and Co deon Flow revealed trace mitral valve regurgitation. TRICUSPID VALVE The tricuspid valve is not well visualized. Doppler and Color Flow revealed trace to mild tricuspid v alve regurgitation. Unable to estimate PA pressure. There is no tricuspid valve stenosis. PULMONIC VALVE The pulmonic valve was not visualized. GREAT VESSELS The aortic root is normal in size. Pulmonary veins not recorded. Due to poor image quality, the IVC c ould not be assessed. PERICARDIAL EFFUSION There is no evidence of significant pericardial effusion. Critical Notification Critical Value: No <Conclusion> Technically difficult study. The left ventricle is normal size. Left ventricle systolic function is normal. The Ejection Fraction is 60-65%. There is normal left ventricular wall thickness. There is no significant aortic valvular stenosis. Doppler and Color Flow revealed trace aortic regurgitation. Doppler and Color Flow revealed trace mitral valve regurgitation. Doppler and Color Flow revealed trace to mild tricuspid valve regurgitation. Unable to estimate PA pr essure. There is no evidence of significant pericardial effusion.
--- NOTE | 2016-11-02 14:46 | PDOC2 ---
PALLIATIVE CARE Palliative Care Note Palliative Care Consult requested by Dr. Shmuel Esposito and Dr. Deal to address goals of care. Diagnosis; per record Acute hypoxemic respiratory failure. Septic shock.. Acute kidney injury. Electrolyte abnormalities. Leukocytosis. Diabetes mellitus. Dementia. Non-ST elevation myocardial infarction.Sick sinus syndrome, status post pacemaker. Patient was found unresponsive in the half-way with oxygen saturation in 70% Patient is unresponsive on Vent 40%. Blood Pressure 80's systolic on Levophed max dosage. Met with family: Verenice ESTRADA. Requested copy of document; sisters--Uzma, Sly Butler; nieces--Suri; Jennifer, Nikole, Misti, Tarrdra, Kathleen, Suri ; sister in law Elio and nephew Berenice. Patient had never been . One of 16 children. Very close to all her nieces and nephews. 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 Enjoyed cooking and entertaining family and friends. Member of [employer]; Family will locate painter decorator for spiritual support. Reviewed Medical condition as above. Acknowledge understanding. Family does not believe she would want to have her dying prolonged. " She would want to with peace and dignity." Discussed options for care. Continue current aggressive treatment with adding pressors vs focus on comfort and allowing patient to peacefully and naturally. Family would like to have time to notify other family member so that they good say their "goodbyes" Family understands that even with this aggressive care patient may before other family members can arrive. They request no attempt at resuscitation. Family will notify Everardo VILLALPANDO when they are ready to focus on comfort. Dr. Deal to be called for comfort orders. Plan: Comfort Care when family ready DNR/DNI YELENA JUÁREZ Nov 02, 2016 14:46
--- NOTE | 2016-11-02 17:07 | HP ---
ADMIT DATE: 11/02/2016 LOCATION: 104. DATE OF ADMISSION: 11/02/2016 REASON FOR ADMISSION TO THE HOSPITAL: Unresponsive at the alf. HISTORY OF PRESENT ILLNESS: The patient was seen in the ER, was unresponsive, was intubated, and on pressors and she was also found to have lactic acidosis, hypotension, elevated troponin, was admitted to the ICU and patient was admitted to the hospital. Discussed with the patient's family members. PAST MEDICAL HISTORY: Has dementia, pacemaker, diabetes, hypertension. ALLERGIES: No known allergies. MEDICATIONS: She is on broad-spectrum antibiotics after cultures were done. She is on Levophed. SOCIAL HISTORY: Negative for smoking, alcohol or drug abuse. She is in [facility] now. FAMILY HISTORY: Unremarkable. PHYSICAL EXAMINATION: GENERAL: The patient is on ventilator, not very responsive. VITAL SIGNS: Blood pressure 120/80 on Levophed, temperature 97, respirations 24, 98% on 40% vent. The patient is orally intubated. NECK: Supple. CHEST: Symmetrical scar. Has pacemaker in left side of the chest. CARDIOVASCULAR: S1, S2. LUNGS: Diminished breath sounds. ABDOMEN: Soft, no mass palpable. Has a Otto catheter. RECTAL: Deferred. EXTREMITIES: No edema. LABORATORY DATA: Shows a white count 18, hemoglobin 12, platelets 209. Electrolytes shows lactic acid 12, sodium 150, potassium 4.2, chloride 109, bicarbonate 14, BUN 38, creatinine 2.6, glucose 145, troponin 4.7. TSH 12.2. Urine negative for nitrites or WBC. CT head was negative. Chest x-ray: Mild left basilar atelectasis, ET tube in place. FINAL IMPRESSION: 1. The patient was unresponsive at the alf. The patient was brought to the hospital and intubated as well as on pressors. The patient is in the ICU on ventilator now. 2. Lactic acidosis with possible sepsis. Culture was done, is on broad spectrum antibiotics. ID was consulted. 3. Respiratory failure. She is on the vent. Pulmonary is consulted. 4. Elevated troponin, history of pacemaker. Cardiology evaluated the patient and see how she does. 5. Renal insufficiency, acute kidney failure secondary to sepsis. 6. Hyponatremia. 7. History of dementia. 8. History of diabetes. PLAN:discussed with family members. vent management,pul consulted cardiology for pacemaker check broad spectrum antibiotics. levophed for hypotension poor prognosis. At this time, admit to ICU. Palliative team has been consulted. Continue current treatment including vent management and broad spectrum antibiotics, cultures were done ,see how the patient's condition improves in next 24-48 pounds. ANA DANIELS MD DR: ERNESTO/betsy JOB#: [id number] / [id number] KURTIS
--- NOTE | 2016-11-04 00:09 | ACF ---
Admission Forms Criteria RESPIRATORY FAILURE GRG ( Place 'X' for any and all applicable criteria): Hospital admission is needed for appropriate care of the patient because of acute respiratory failure or insufficiency as indicated by 1 or more of the following (1)(2)(3)(4)(5)(6)(7)(8 ): [X]I. Mechanical ventilation needed (acute invasive or noninvasive) [ ]II. Severe ventilation deficit as indicated by 1 or more of the following ( 9) [ ]a) Uncompensated Respiratory acidosis (pH < 7.35 and PaCO2 > 40 mmHg (5.3 kPa)) [ ]b) Airflow measurements < 25% of predicted (eg, PEFR < 100 L/min) [ ]c) FVC < 15 mL/kg of ideal body weight, or 50% decrease in vital capacity from baseline [ ]III. Noncardiac pulmonary edema not resolving with rapid emergency treatment (8) [ ]IV. Severe respiratory distress as indicated by 1 or more of the following: [ ]a) Severe tachypnea (respiratory rate greater than 30, greater than 45 for 6-month-old, greater than 60 for ) [ ]b) Severe hypoxemia (partial pressure of oxygen less than 50 mm Hg ( 6.7 kPa) on greater than 50% oxygen or partial pressure of oxygen to FIO2 ratio less than 200) [ ]c) Mental status deterioration from respiratory disease [ ]V. Airway obstruction or inadequate protection [A](10)(11) The original [employer] content created by [employer] has been revised. The portions of the content which have been revised are identified through the use of italic text, and [facility] has neither reviewed nor approved the modified material. All other unmodified content is copyright [employer]. Please see references footnoted in the original [employer] edition 2014 Admission Criteria Met?: Yes JACQUE OTTO Nov 04, 2016 00:09
--- NOTE | 2016-11-05 18:26 | PDOC ---
Provider Note Provider Note summary dictated. #[id number] ANA DANIELS MD Nov 05, 2016 18:26
--- NOTE | 2016-11-05 19:43 | DS ---
DATE OF DISCHARGE: 11/02/2016 DATE OF : 11/02/2016. CONSULTATION: Dr. Dorado, Pulmonology; Dr. Ludwig, Cardiology; Infectious Disease, Dr. Esposito. PROCEDURES DONE: 1. Intubation. 2. Echocardiogram. HOSPITAL COURSE: The patient is an 89-year-old female patient from [facility], found unresponsive at the nursing facility, was hypertensive and bradycardic and unresponsive, was brought into the hospital. The patient was intubated in the ER. Culture was done and the patient on pressors, was admitted to the ICU. The patient has a history of pacemaker, sick sinus syndrome, seen by Cardiology, had echocardiogram shows 60% ejection fraction. The patient was unresponsive, was seen by palliative team, had discussion with the family and had a family team and the patient's family wanted to extubate her and have death and the patient was extubated and she shortly after that. FINAL DIAGNOSES: Septic shock, [id number] myocardial infarction, hypertension and history of pacemaker. The patient from normal medical causes. ANA DANIELS MD DR: ERNESTO/betsy JOB#: [id number] / [id number]
== END 2016-11-02 16:45 | disposition expired | DRG 208 ==
LOC: ER 04:26 → 1 WEST ICU 05:00 → EDBD 05:00
PROVIDERS: ADMIT Internal Medicine; ATTEND Internal Medicine
PROC: 5A1935Z Respiratory Ventilation, Less than 24 Consecutive Hours (ICD-10-PCS; principal; 2016-11-02)
PROC: 0BH17EZ Insertion of Endotracheal Airway into Trachea, Via Natural or Artificial Opening (ICD-10-PCS; 2016-11-02)
DX: J96.01 Acute respiratory failure with hypoxia (principal); R65.21 Severe sepsis with septic shock; I21.4 Non-ST elevation (NSTEMI) myocardial infarction; A41.9 Sepsis, unspecified organism; N17.9 Acute kidney failure, unspecified; E87.1 Hypo-osmolality and hyponatremia; E11.9 Type 2 diabetes mellitus without complications; E78.00 Pure hypercholesterolemia, unspecified; E78.5 Hyperlipidemia, unspecified; F03.90 Unspecified dementia, unspecified severity, without behavioral disturbance, psychotic disturbance, mood disturbance, and anxiety; Z51.5 Encounter for palliative care; I10 Essential (primary) hypertension; Z82.49 Family history of ischemic heart disease and other diseases of the circulatory system; Z83.3 Family history of diabetes mellitus; Z95.0 Presence of cardiac pacemaker; Z99.3 Dependence on wheelchair; Z80.9 Family history of malignant neoplasm, unspecified
CPT/HCPCS: 36415; 36600; 51702; 70450; 71010; 80053; 80061; 81001; 82805; 83605; 83880; 84443; 84484; 85007; 85025; 87040; 87641; 93306; 94002; 94003; 96365; 96367; 96368; 96375; J1956; J2060; J2250; J2270; J2310; J2543; J3370; J3490; J7030; J7050; 99285-25